=== PATIENT | male | born 1945 ===

== ENCOUNTER → 2021-03-21 10:05 | Outpatient (CLI) | payer MEDICARE, OTHER, SELFPAY ==
[2021-03-21 20:17] LABS: COVID19 - ORCAS (NP or Nasal) Negative (Negative)
== END ==
PROVIDERS: PCP Student in an Organized Health Care Education/Training Program; Visit Provider Physician Assistant
DX: Z20.822 Contact with and (suspected) exposure to COVID-19 (principal)
CPT/HCPCS: C9803; U0003

== ENCOUNTER → 2021-03-30 10:47 | Outpatient (CLI) | payer MEDICARE, OTHER, SELFPAY ==
[2021-03-30 21:00] LABS: COVID19 - ORCAS (NP or Nasal) POSITIVE (Negative)
== END ==
PROVIDERS: PCP Student in an Organized Health Care Education/Training Program; Visit Provider Physician Assistant
DX: U07.1 COVID-19 (principal)
CPT/HCPCS: U0003

== ENCOUNTER 2021-05-18 16:47 | Emergency (ER) | payer MEDICARE, OTHER, SELFPAY ==
[2021-05-18] VITALS (7 sets, daily range): BP systolic 156–158; BP diastolic 70–89; PULSE 55–75; RESP 16; TEMP 37.1; O2SAT 88–100; BMI 26.2
--- NOTE | 2021-05-18 17:29 | ED.NECK ---
HPI - Neck Pain/Injury General Chief Complaint: Neck Pain/Injury Stated Complaint: RT side of neck swole up, phys ref Mode of arrival: Ambulatory Related Data Home Medications Medication Instructions Recorded Confirmed lisinopril 20 mg tablet mg PO DAILY 05/18/21 simvastatin 10 mg tablet mg 05/18/21 Previous Rx's Medication Instructions Recorded RESMED AIR SENSE #1 ea 10/05/20 Allergies Allergy/AdvReac Type Severity Reaction Status Date / Time No Known Drug Allergies Allergy Verified 05/18/21 17:00 Patient History Medical History (Updated 06/18/18 @ 20:09 by VANIA Mann) Obstructive sleep apnea of adult Primary insomnia Social History Smoking Status: Never smoker Smoking Status: Never smoker alcohol intake frequency: 0-2 drinks per day Alcohol type: wine Substance Use Type: does not use Exam Initial Vital Signs Initial Vital Signs: Vital Signs Temperature 98.8 F 05/18/21 16:58 Pulse Rate 71 05/18/21 16:58 Respiratory Rate 16 05/18/21 16:58 Blood Pressure 156/70 H 05/18/21 16:58 Pulse Oximetry 98 05/18/21 16:58 Course Orders Ordered: ED Orders 05/18/21 17:29 Complete Blood Count AUTO DIFF Stat Comprehensive Metabolic Panel Stat Vital Signs Vital signs: Vital Signs - 8 hr 05/18/21 16:58 Temperature 98.8 F Pulse Rate 71 Respiratory Rate 16 Blood Pressure 156/70 H Pulse Oximetry 98 Discharge Plan Departure Prescriptions: No Action lisinopril 20 mg Tablet PO DAILY RF: 0 simvastatin 10 mg Tablet RF: 0 (DME) RESMED AIR SENSE 6-12 CWP See Rx Instructions .Route .MEDSUPPLY Qty: 1 RF: 0 Referrals: Carlos Souza MD [Primary Care Provider] -
[2021-05-18 17:34] LABS: Add Manual Diff / Slide Review NO; Basophils Absolute Auto 0 /uL (0-100); Basophils Percent Auto 0.4 % (0-2); Eosinophils Absolute Auto 100 /uL (0-450); Eosinophils Percent Auto 1.1 % (2-4); Hematocrit 41.4 % (41-53); Hemoglobin 13.7 g/dL (13.5-17.5); Lymphocytes Absolute Auto 1100 /uL (1100-4500); Lymphocytes Percent Auto 9.6 % (25-40); Mean Corpuscular HGB Conc 33.1 % (30-36); Mean Corpuscular Hemoglobin 30.5 PG (26-34); Mean Corpuscular Volume 92.2 fL (80-100); Monocytes Absolute Auto 1100 /uL (0-900); Monocytes Percent Auto 9.8 % (3-14); Neutrophils Absolute Auto 9200 /uL (1500-7000); Neutrophils Percent Auto 79.1 % (50-75); Platelet Count 316 X10^3/uL (150-400); Red Blood Cell Count 4.49 X10^6/uL (4.5-5.9); Red Cell Distribution Width 13.3 % (11.6-14.8); White Blood Cell Count 11.6 X10^3/uL (4.5-11.0)
[2021-05-18 17:39] LABS: Alanine Aminotransferase 20 IU/L (<50); Albumin 4.6 g/dL (3.5-5.0); Albumin Globulin Ratio 1.7 (1.0-2.8); Alkaline Phosphatase 49 U/L (38-126); Aspartate Aminotransferase 26 IU/L (17-59); BUN Creatinine Ratio 17.8 (6-22); Bilirubin Total 0.8 mg/dL (0.2-1.3); Blood Urea Nitrogen 16 mg/dL (9-20); Calcium 9.7 mg/dL (8.4-10.2); Carbon Dioxide 29 mmol/L (22-32); Chloride 101 mmol/L (98-107); Estimated Glomerular Filt Rate > 60.0 mL/min (>60); Globulin 2.7 g/dL (1.7-4.1); Glucose 104 mg/dL (80-110); HEMOLYSIS < 15 (0-50); Potassium 4.2 mmol/L (3.4-5.1); Sodium 139 mmol/L (137-145); Total Protein 7.3 g/dL (6.3-8.2)
--- NOTE | 2021-05-18 18:07 | ED_ITS ---
HPI - Neck Pain/Injury General Chief Complaint: Neck Pain/Injury Stated Complaint: RT side of neck swole up, phys ref Time Seen by Provider: 05/18/21 17:50 Mode of arrival: Ambulatory History of Present Illness HPI Narrative: 76-year-old male nonsmoker with history of hypertension and hyperlipidemia presents with family in the chief complaint of a sudden onset pa in and swelling to the right side of his neck this afternoon. He denies any trauma or injury. He has no systemic findings such as fever, chills nor nausea or vomiting. He denies any difficulty swallowing or breathing. He denies any history of the same. He denies any change in his overall health recently. He has had no unexplained weight loss. He denies any significant fatigue or breathlessness. [place] to present for a more thorough evaluation Related Data Home Medications Medication Instructions Recorded Confirmed lisinopril 20 mg tablet mg PO DAILY 05/18/21 simvastatin 10 mg tablet mg 05/18/21 Previous Rx's Medication Instructions Recorded [employer] AIR SENSE #1 ea 10/05/20 amoxicillin 875 mg-potassium 1 tab PO BID #20 tab 05/18/21 clavulanate 125 mg tablet (Augmentin) Allergies Allergy/AdvReac Type Severity Reaction Status Date / Time No Known Drug Allergies Allergy Verified 05/18/21 17:00 Review of Systems Review of Systems Narrative: GENERAL: Denies chills, fatigue, malaise, fever, sweats. HEENT: See HPI RESPIRATORY: Denies dyspnea, cough, wheezing, hemoptysis, sputum. CARDIOVASCULAR: Denies chest pain, palpitations, orthopnea, edema, GASTROINTESTINAL: Denies nausea, vomiting, abdominal pain, diarrhea, constipation, melena. : Denies dysuria, frequency, incontinence, hematuria, urinary retention. MUSCULOSKELETAL: denies weakness, joint pain, or bony pain SKIN: Denies rash, skin lesions, or other NEUROLOGIC: Denies weakness, headache, numbness, change in speech, confusion, seizures, incoordination. PSYCHIATRIC: No concerning psychosocial issues. 12 point review of systems is negative except for those stated above Patient History Medical History Obstructive sleep apnea of adult Primary insomnia Social History Smoking Status: Never smoker Smoking Status: Never smoker alcohol intake frequency: 0-2 drinks per day Alcohol type: wine Substance Use Type: does not use Exam Narrative Exam Narrative: GENERAL: [76] year old patient appears stated age. Well- developed patient, in mild distress. HEAD: Atraumatic. Normocephalic. EYES: Pupils equal round and reactive. Extraocular motions intact. No scleral icterus. No injection or drainage. ENT: Pain and swelling to right lateral neck, no redness, warmth or fluctuance. No red streaks. No trismus. No posterior pharyngeal narrowing or swelling CARDIOVASCULAR: Regular rate and rhythm without murmurs, gallops, or rubs. RESPIRATORY: Clear to auscultation. Breath sounds equal bilaterally. No wheezes, rales, or rhonchi. GASTROINTESTINAL: Abdomen soft, non-tender, nondistended. EXTREMITIES: No edema or joint tenderness. BACK: Nontender without deformity or crepitance. No flank tenderness. NEURO: AOx3. SKIN: No rash or erythema of visible areas Initial Vital Signs Initial Vital Signs: Vital Signs Temperature 98.8 F 05/18/21 16:58 Pulse Rate 71 05/18/21 16:58 Respiratory Rate 16 05/18/21 16:58 Blood Pressure 156/70 H 05/18/21 16:58 Pulse Oximetry 98 05/18/21 16:58 Course Orders Ordered: ED Orders 05/18/21 17:00 Complete Blood Count AUTO DIFF Stat Comprehensive Metabolic Panel Stat 05/18/21 18:18 CT soft tissue neck w con Stat Discontinued Medications Amoxicillin/Clavulanate Potassium (Amoxicillin/Clav 875/125 Mg) 1 tab PO NOW ONE Stop: 05/18/21 19:18 Last Admin: 05/18/21 19:22 Dose: 1 tab Documented by: AIMEE Vital Signs Vital signs: Vital Signs - 8 hr 05/18/21 16:58 05/18/21 17:14 05/18/21 17:30 Temperature 98.8 F Pulse Rate 71 62 57 L Respiratory Rate 16 Blood Pressure 156/70 H Pulse Oximetry 98 100 100 05/18/21 18:00 05/18/21 18:30 05/18/21 19:03 Temperature Pulse Rate 55 L 63 75 Respiratory Rate Blood Pressure Pulse Oximetry 99 99 88 L 05/18/21 19:22 Temperature Pulse Rate 66 Respiratory Rate Blood Pressure 158/89 H Pulse Oximetry 99 MDM - Neck Pain/Injury Lab Data Result diagrams: 05/18/21 17:00 05/18/21 17:00 Labs: Lab Results 05/18/21 05/18/21 Range/Units 17:00 17:00 WBC 11.6 H (4.5-11.0) X10^3/uL RBC 4.49 L (4.5-5.9) X10^6/uL Hgb 13.7 (13.5-17.5) g/dL Hct 41.4 (41-53) % MCV 92.2 (80-100) fL MCH 30.5 (26-34) PG MCHC 33.1 (30-36) % RDW 13.3 (11.6-14.8) % Plt Count 316 (150-400) X10^3/uL Neut % (Auto) 79.1 H (50-75) % Lymph % (Auto) 9.6 L (25-40) % [place] % (Auto) 9.8 (3-14) % Eos % (Auto) 1.1 L (2-4) % Baso % (Auto) 0.4 (0-2) % Neut # (Auto) 9200 H (0280-2045) /uL Lymph # (Auto) 1100 (5960-5366) /uL [place] # (Auto) 1100 H (0-900) /uL Eos # (Auto) 100 (0-450) /uL Baso # (Auto) 0 (0-100) /uL Sodium 139 (137-145) mmol/L Potassium 4.2 (3.4-5.1) mmol/L Chloride 101 (98-107) mmol/L Carbon Dioxide 29 (22-32) mmol/L BUN 16 (9-20) mg/dL Creatinine 0.90 (0.66-1.25) mg/dL Estimated GFR > 60.0 (>60) mL/min BUN/Creatinine Ratio 17.8 (6-22) Glucose 104 (80-110) mg/dL Calcium 9.7 (8.4-10.2) mg/dL Total Bilirubin 0.8 (0.2-1.3) mg/dL AST 26 (17-59) IU/L ALT 20 (<50) IU/L Alkaline Phosphatase 49 (38-126) U/L Total Protein 7.3 (6.3-8.2) g/dL Albumin 4.6 (3.5-5.0) g/dL Globulin 2.7 (1.7-4.1) g/dL Albumin/Globulin Ratio 1.7 (1.0-2.8) Imaging Data CT Soft Tissue Neck: Radiologist's Impression: Speedy Vaca??76??M??1945 ? Allergy/Adv: No Known Drug Allergies Close Soft Tissue Neck CT (Signed) Ramon Sandoval - 05/18/21 [place] [address] CT Scan Report Signed Patient: Speedy Vaca MR#: [id number] : 1945 Acct:[id number] Age/Sex: 76 / M Date of Service: 05/18/21 Loc: ED Accession Number: [id number] ?? Procedure: CT soft tissue neck w con Ordering Provider: Baljeet Avery D.O. PROCEDURE:? CT SOFT TISSUE NECK W CON ? INDICATIONS:? pain, swelling, right lateral neck, no injury ? TECHNIQUE:? After the administration of intravenous contrast, 3.0 mm axial sections acquired from the sella to the aortic arch.? Additional oblique axial 3.0 mm sections acquired through the pharynx.? 3 mm thick coronal and sagittal reformats were generated.? For radiation dose reduction, the following was used:? automated exposure control.? ? COMPARISON:? None. ? FINDINGS: ? Skull Base: The visualized intracranial contents, skull, and orbits are unremarkable.? Mild bilateral maxillary sinus mucosal thickening. ? Pharynx and Larynx:? The nasopharyngeal airway is patent and midline.? Parapharyngeal soft tissues including palatine tonsils and base of the tongue are normal.? Retropharyngeal space unremarkable.? Normal appearance of the false and true vocal cords. ? ? Muscles and Fascial Planes:? Fascial planes are well maintained.? No abscess or mass lesion. ? Lymph Nodes:? Scattered nonenlarged bilateral deep cervical lymph nodes.? . ? Vasculature:? Unremarkable. ? Submandibular and Parotid Glands:? There is swelling and edema adjacent to the right parotid gland, which corresponds with the marked palpable abnormality.? Left parotid gland unremarkable.? No evidence of abscess, calculi or obstruction. ? Thyroid:? Unremarkable.? No enlarged or calcified nodules. ? Bones:? No acute fracture.? No osteolytic or blastic lesion is evident. Normal bone mineralization. ? Lung Apices:? The visualized lung apices are clear. ? ? IMPRESSION: ? 1. Right parotid sialoadenitis without obstruction or calculus. ? 2. Mild bilateral maxillary mucosal sinus disease. ? Approved by: Ramon Sandoval M.D. on 05/18/2021 at 17:58? MDM Narrative Medical decision making narrative: Patient with relatively sudden onset and painful swelling of his right lateral neck. There was no trauma or injury. Patient has a very reassuring physical exam and actually has an improvement in symptoms without any interventions over the course of the day. He has no difficulty breathing or swallowing. CT this very reassuring and suggests sialadenitis, no evidence of abscess, airway compromise or other. Though there is no erythema or fever patient does have an elevation in white blood cells and for this reason he is treated with antibiotics, encouraged to consume sialagogues, given return precautions and questions answered to his apparent satisfaction Discharge Plan Departure Patient Disposition: Home Clinical Impression: Acute sialoadenitis Instructions: DI for Neck Pain Activity Restrictions/Additional Instructions: *You have been diagnosed with [Neck pain and swelling due to inflamed salivary gland (sialadenitis)] *What to do: *Please continue to take your regular medications as directed. Also, cons ider taking hard candies to help increase saliva production which can help symptoms improve [ X] New medication prescriptions sent to your pharmacy: [[facility] ] [ ] New medication written as a paper prescription [ ] No new medications given *Please follow up with your primary care provider in 2-3 days, call for an appointment. Let them know you were seen in the Emergency Department and that we ask that you be seen in follow up. We will electronically transmit a record of today's note if your PCP is in our system *If you do not have a primary care provider please contact the [facility] Resource line at [phone]. They will ask some questions about your medical history and help get you set up with a doctor in the community. *Return to Emergency Department if you should have any new, worsening or concerning symptoms, such as [fever greater than 101 F, shaking chills, worsening pain, persistent vomiting or other bothersome symptoms] Prescriptions: New amoxicillin-pot clavulanate [Augmentin] 875-125 mg tablet 1 tab PO BID Qty: 20 RF: 0 No Action lisinopril 20 mg Tablet PO DAILY RF: 0 simvastatin 10 mg Tablet RF: 0 (DME) RESMED AIR SENSE 6-12 CWP See Rx Instructions .Route .MEDSUPPLY Qty: 1 RF: 0 Referrals: Carlos Souza MD [Primary Care Provider] -
--- NOTE | 2021-05-18 18:18 | DI.CT.S_ITS ---
PROCEDURE: CT SOFT TISSUE NECK W CON INDICATIONS: pain, swelling, right lateral neck, no injury TECHNIQUE: After the administration of intravenous contrast, 3.0 mm axial sections acquired from the sella to the aortic arch. Additional oblique axial 3.0 mm sections acquired through the pharynx. 3 mm thick coronal and sagittal reformats were generated. For radiation dose reduction, the following was used: automated exposure control. COMPARISON: None. FINDINGS: Skull Base: The visualized intracranial contents, skull, and orbits are unremarkable. Mild bilateral maxillary sinus mucosal thickening. Pharynx and Larynx: The nasopharyngeal airway is patent and midline. Parapharyngeal soft tissues including palatine tonsils and base of the tongue are normal. Retropharyngeal space unremarkable. Normal appearance of the false and true vocal cords. Muscles and Fascial Planes: Fascial planes are well maintained. No abscess or mass lesion. Lymph Nodes: Scattered nonenlarged bilateral deep cervical lymph nodes. . Vasculature: Unremarkable. Submandibular and Parotid Glands: There is swelling and edema adjacent to the right parotid gland, which corresponds with the marked palpable abnormality. Left parotid gland unremarkable. No evidence of abscess, calculi or obstruction. Thyroid: Unremarkable. No enlarged or calcified nodules. Bones: No acute fracture. No osteolytic or blastic lesion is evident. Normal bone mineralization. Lung Apices: The visualized lung apices are clear. IMPRESSION: 1. Right parotid sialoadenitis without obstruction or calculus. 2. Mild bilateral maxillary mucosal sinus disease. Approved by: Ramon Sandoval M.D. on 05/18/2021 at 17:58
--- NOTE | 2021-05-18 18:38 | PC.NURSE ---
Patient C/O r-sided neck swelling and 3/10 pain. States he was at home this afternoon when his r-side neck began to hurt. He states r-side of his neck swelled up like a balloon: denies difficulty swallowing, denies N/V/D, denies [place], denies jaw pain. Denies dizziness/lightheadedness. No fever. Covid vaccinated. Appears majority of swelling has diminished at this time.
[2021-05-18] MEDS: AMOXICILLIN/CLAV 875/125 MG 1 TAB PO (19:22)
== END 2021-05-18 19:29 | disposition home or self-care (01) ==
PROVIDERS: Emergency Medicine; Emergency Provider Emergency Medicine; PCP Student in an Organized Health Care Education/Training Program
DX: K11.21 Acute sialoadenitis (principal)
CPT/HCPCS: 36415; 70491; 80053; 85025; 99283; 99284

== ENCOUNTER → 2023-05-14 09:43 | Outpatient (CLI) | payer MEDICARE, OTHER, SELFPAY ==
--- NOTE | 2023-05-14 09:47 | DI.RAD.S_ITS ---
PROCEDURE: XR KNEE LT 3V INDICATIONS: Left knee pain TECHNIQUE: 3 views of the knee were acquired. COMPARISON: None. FINDINGS: Bones: No fractures or dislocations. Superior patella enthesophyte. Minimal osteophytic lipping. No suspicious bony lesions. Soft tissues: Trace joint effusion. No suspicious soft tissue calcifications. Arterial vascular calcifications. IMPRESSION: No acute osseous abnormality. Dictated by: Melquiades Jimenez M.D. on 05/14/2023 at 10:04 Approved by: Melquiades Jimenez M.D. on 05/14/2023 at 10:05
== END ==
PROVIDERS: PCP Student in an Organized Health Care Education/Training Program; Referring Provider Physician Assistant; Visit Provider Physician Assistant
DX: M25.562 Pain in left knee (principal)
CPT/HCPCS: 73562

== ENCOUNTER → 2024-08-21 10:16 | Outpatient (CLI) | payer MEDICARE, OTHER, SELFPAY ==
[2024-08-21 20:36] LABS: Alanine Aminotransferase 18 IU/L (<50); Albumin 3.8 g/dL (3.5-5.0); Albumin Globulin Ratio 1.4 (1.0-2.8); Alkaline Phosphatase 57 U/L (38-126); Aspartate Aminotransferase 24 IU/L (17-59); BUN Creatinine Ratio 18.5 (6-22); Bilirubin Total 0.8 mg/dL (0.2-1.3); Blood Urea Nitrogen 15 mg/dL (9-20); Calcium 9.4 mg/dL (8.4-10.2); Carbon Dioxide 26 mmol/L (22-32); Chloride 103 mmol/L (98-107); Cholesterol 198 mg/dL (140-199); Estimated Glomerular Filt Rate > 60 mL/min (>60); Globulin 2.7 g/dL (1.7-4.1); Glucose 102 mg/dL (80-110); HDL Cholesterol 64 mg/dL (40-60); HEMOLYSIS < 15 (0-50); LDL Cholesterol Calculated 118 mg/dL (<100); Potassium 4.5 mmol/L (3.4-5.1); Sodium 133 mmol/L (137-145); Total Protein 6.5 g/dL (6.3-8.2); Triglycerides 78 mg/dL (35-150)
== END ==
PROVIDERS: PCP Student in an Organized Health Care Education/Training Program; Visit Provider Student in an Organized Health Care Education/Training Program
DX: E78.2 Mixed hyperlipidemia (principal)
CPT/HCPCS: 80053; 80061